=== PATIENT | male | born 1995 | race African-American/Black ===

== ENCOUNTER 2022-05-08 12:24 | Emergency (ER) | payer OTHER ==
[~2022-05-08] VITALS: Ht 175.3 cm; Wt 67.2 kg
[2022-05-08 13:48] VITALS: BP 126/79
[2022-05-08] MEDS ORDERED: CEPH-510 PO (14:08)
[2022-05-08] MEDS ORDERED: BACDST PO (14:08)
[2022-05-08] MEDS ORDERED: IBUP800T27 PO (14:08)
[2022-05-08] MEDS ORDERED: IBUPROFEN 800 MG TAB PO ONE (14:15)
== END 2022-05-08 14:27 | disposition home or self-care (01) ==
LOC: ER 12:24
DX: S80.861A Insect bite (nonvenomous), right lower leg, initial encounter (principal); Z79.899 Other long term (current) drug therapy; W57.XXXA Bitten or stung by nonvenomous insect and other nonvenomous arthropods, initial encounter; Y93.89 Activity, other specified; Y92.89 Other specified places as the place of occurrence of the external cause; Y99.8 Other external cause status

== ENCOUNTER 2022-05-11 13:55 | Inpatient (IN) | payer OTHER ==
[~2022-05-11] VITALS: Ht 175.3 cm; Wt 71.5 kg
[~2022-05-11 13:55] MED LIST: BACDST PO; CEPH-510 PO; IBUP800T27 PO
[2022-05-11] MEDS ORDERED: VANCOMYCIN 1GM/250ML 250 ML IV ONE (17:30)
[2022-05-11] MEDS ORDERED: PIPERACILLIN-TAZOB 3.375GM 100 ML IV ONE (17:30)
[2022-05-11 18:18] LABS: Basophils # (auto) 0 10 ^3/uL (0-0.2); Basophils % (auto) 0.4 % (0.0-2.0); Eosinophils # (auto) 0.2 10 ^3/uL (0-0.8); Eosinophils % (auto) 2.5 % (0.0-7.0); Hemoglobin 13.9 g/dL (13.5-17.5); Lymphocytes # (auto) 2.2 10 ^3/uL (0.4-5.4); Lymphocytes % (auto) 36.7 % (10.0-50.0); Mean Corpuscular Hemoglobin 27.9 pg (28.0-32.0); Mean Corpuscular Hgb Conc. 33.9 g/dL (32.0-36.0); Mean Corpuscular Volume 82.5 fL (80.0-100.0); Monocytes # (auto) 0.6 10 ^3/uL (0-1.3); Neutrophils # (auto) 3.1 10 ^3/uL (1.6-8.6); Neutrophils % (auto) 50.4 % (37.0-80.0); Nucleated Red Blood Cells % 0.2 %; Red Blood Cells 4.97 10^6/uL (4.5-5.90); White Blood Cell 6.1 10^3/uL (4.4-10.8)
[2022-05-11 18:31] LABS: Albumin 3.3 g/dL (3.4-5.0); Calcium 8.9 mg/dL (8.5-10.1); Potassium 3.8 mmol/L (3.5-5.1)
[2022-05-11 18:34] LABS: BUN/Creatinine Ratio 6.2; Bilirubin, Total 0.2 mg/dL (0.2-1.0); Total Protein 9.6 g/dL (6.4-8.2)
[2022-05-11 18:39] LABS: Lactic Acid w/Reflex 2.1 mmol/L (0.4-2.0)
[2022-05-11] MEDS ORDERED: ACETAMINOPHEN 325 MG TAB PO PRN (21:30)
[2022-05-11] MEDS ORDERED: TEMAZEPAM 15 MG CAP PO PRN (21:30)
[2022-05-11] MEDS ORDERED: ONDANSETRON HCL 4 MG/2 ML VIAL IV PRN (21:30)
[2022-05-12 05:02] LABS: Basophils # (auto) 0 10 ^3/uL (0-0.2); Basophils % (auto) 0.4 % (0.0-2.0); Eosinophils # (auto) 0.1 10 ^3/uL (0-0.8); Eosinophils % (auto) 2.3 % (0.0-7.0); Hematocrit 40.1 % (41.0-53.0); Hemoglobin 13.6 g/dL (13.5-17.5); Lymphocytes # (auto) 2.3 10 ^3/uL (0.4-5.4); Lymphocytes % (auto) 35.9 % (10.0-50.0); Mean Corpuscular Hemoglobin 28.3 pg (28.0-32.0); Mean Corpuscular Hgb Conc. 33.9 g/dL (32.0-36.0); Mean Corpuscular Volume 83.3 fL (80.0-100.0); Monocytes # (auto) 0.8 10 ^3/uL (0-1.3); Monocytes % (auto) 11.5 % (0.0-12.0); Neutrophils # (auto) 3.3 10 ^3/uL (1.6-8.6); Neutrophils % (auto) 49.9 % (37.0-80.0); Red Blood Cells 4.81 10^6/uL (4.5-5.90); Red Cell Distribution Width 15.3 % (11.8-14.3); White Blood Cell 6.5 10^3/uL (4.4-10.8)
[2022-05-12 05:21] LABS: Calcium 9.1 mg/dL (8.5-10.1); Potassium 3.9 mmol/L (3.5-5.1)
[2022-05-12 05:25] LABS: BUN/Creatinine Ratio 9.9
[2022-05-12] MEDS: HYDROcodone-ACET 5/325MG TAB PO PRN (11:20)
[2022-05-12] MEDS: cefTRIAXone 1GM/50ML D5W 50 ML IV SCH (11:21)
[2022-05-12] MEDS: PANTOPRAZOLE 40 MG TAB PO SCH (11:39)
[2022-05-12] MEDS: CLINDAMYCIN 600MG IV 50 ML IV SCH ×3 (11:45→14:00)
[2022-05-12] MEDS ORDERED: VANCOMYCIN PER PHARMACY 0 MG IV SCH (15:30)
[2022-05-12] MEDS: VANCOMYCIN 1GM/250ML 250 ML IV SCH (17:00)
[2022-05-12 21:51] VITALS: BP 110/62
[2022-05-13] MEDS: VANCOMYCIN 1GM/250ML 250 ML IV SCH ×3 (03:00→23:10)
[2022-05-13 04:53] VITALS: BP 121/79
[2022-05-13] MEDS: HYDROcodone-ACET 5/325MG TAB PO PRN ×2 (06:36→22:40)
[2022-05-13] MEDS: cefTRIAXone 1GM/50ML D5W 50 ML IV SCH (08:40)
[2022-05-13] MEDS: PANTOPRAZOLE 40 MG TAB PO SCH (08:40)
[2022-05-13 09:00] VITALS: BP 109/74
[2022-05-13 16:27] VITALS: BP 122/71
[2022-05-13 22:00] VITALS: BP 126/85
[2022-05-14 04:19] VITALS: BP 110/70
[2022-05-14 09:00] VITALS: BP 125/80
[2022-05-14] MEDS: PANTOPRAZOLE 40 MG TAB PO SCH ×2 (09:07→13:18)
[2022-05-14] MEDS: VANCOMYCIN 1GM/250ML 250 ML IV SCH ×2 (09:07→20:00)
[2022-05-14] MEDS: cefTRIAXone 1GM/50ML D5W 50 ML IV SCH (09:07)
[2022-05-14 13:00] VITALS: BP 122/87
[2022-05-14 16:22] VITALS: BP 128/80
[2022-05-15 05:00] VITALS: BP 128/86
[2022-05-15] MEDS: VANCOMYCIN 1GM/250ML 250 ML IV SCH ×2 (05:17→15:01)
[2022-05-15 08:00] VITALS: BP 141/90
[2022-05-15 08:42] VITALS: BP 141/90
[2022-05-15] MEDS: cefTRIAXone 1GM/50ML D5W 50 ML IV SCH (09:01)
[2022-05-15] MEDS: HYDROcodone-ACET 5/325MG TAB PO PRN (12:09)
[2022-05-15 13:00] VITALS: BP 129/89
[2022-05-15 16:11] VITALS: BP 140/89
[2022-05-15 22:00] VITALS: BP 128/76
[2022-05-16] MEDS: HYDROcodone-ACET 5/325MG TAB PO PRN ×2 (00:13→05:29)
[2022-05-16] MEDS: VANCOMYCIN 1GM/250ML 250 ML IV SCH ×3 (01:16→21:35)
[2022-05-16 05:00] VITALS: BP 119/87
[2022-05-16 08:00] VITALS: BP 126/85
[2022-05-16] MEDS: cefTRIAXone 1GM/50ML D5W 50 ML IV SCH (08:36)
[2022-05-16 09:00] VITALS: BP 126/85
[2022-05-16] MEDS: PANTOPRAZOLE 40 MG TAB PO SCH (10:22)
[2022-05-16 13:00] VITALS: BP 124/75
[2022-05-16 16:47] VITALS: BP 127/86
[2022-05-16 22:00] VITALS: BP 126/75
[2022-05-17 05:00] VITALS: BP 119/84
[2022-05-17] MEDS: VANCOMYCIN 1GM/250ML 250 ML IV SCH ×2 (06:28→18:35)
[2022-05-17 09:00] VITALS: BP 126/88
[2022-05-17] MEDS: PANTOPRAZOLE 40 MG TAB PO SCH (10:07)
[2022-05-17] MEDS: cefTRIAXone 1GM/50ML D5W 50 ML IV SCH (10:08)
[2022-05-17 13:00] VITALS: BP 126/75
[2022-05-17 16:57] VITALS: BP 115/78
[2022-05-17 22:00] VITALS: BP 134/82
[2022-05-18] MEDS: VANCOMYCIN 1GM/250ML 250 ML IV SCH ×2 (02:34→13:00)
[2022-05-18 05:13] VITALS: BP 122/70
[2022-05-18 09:00] VITALS: BP 137/87
[2022-05-18] MEDS: cefTRIAXone 1GM/50ML D5W 50 ML IV SCH (09:57)
[2022-05-18] MEDS: PANTOPRAZOLE 40 MG TAB PO SCH (10:01)
[2022-05-18] MEDS ORDERED: AUG875T PO (12:35)
[2022-05-18 13:00] VITALS: BP 120/79
== END 2022-05-18 15:45 | disposition home or self-care (01) | DRG 383 ==
LOC: ER 13:55 → OVERFLOW 21:18 → WEST WING 05-12 21:45
PROVIDERS: ADMIT Nurse Practitioner; ATTEND Student in an Organized Health Care Education/Training Program
DX: L03.115 Cellulitis of right lower limb (principal); E44.0 Moderate protein-calorie malnutrition; Z20.822 Contact with and (suspected) exposure to COVID-19; L02.415 Cutaneous abscess of right lower limb; F12.90 Cannabis use, unspecified, uncomplicated; F17.200 Nicotine dependence, unspecified, uncomplicated; S81.801A Unspecified open wound, right lower leg, initial encounter; X58.XXXA Exposure to other specified factors, initial encounter; Y93.89 Activity, other specified; Z59.00 Homelessness unspecified; Z91.199 Patient's noncompliance with other medical treatment and regimen due to unspecified reason; Z68.22 Body mass index [BMI] 22.0-22.9, adult; Y92.89 Other specified places as the place of occurrence of the external cause; Y99.8 Other external cause status
CPT/HCPCS: 36415; 76881; 80048; 80053; 80202; 82565; 83605; 85025; 87040; 87077; 87186; 87205; 87426; G0378; J0696; J2543; J3490